=== PATIENT | male | born 1940 | race Caucasian/White ===

== ENCOUNTER 2022-03-16 12:41 | Inpatient (IN) | payer OTHER ==
[~2022-03-16] VITALS: Ht 170.2 cm; Wt 66.2 kg
[2022-03-16 21:28] LABS: BASOPHILS % 0.6 % (0.0-2.0); EOSINOPHILS % 1.1 % (0.0-5.0); HEMATOCRIT. 41.8 % (42.0-52.0); HEMOGLOBIN. 14.2 g/dL (14.0-18.0); LYMPHOCYTES % 16.6 % (20.0-50.0); MEAN CORPUSCULAR HEMOGLOBIN 31.7 pg (28.0-32.0); MEAN CORPUSCULAR VOLUME 93.3 fL (80.0-94.0); MEAN PLATELET VOLUME 8.7 fl (7.4-10.4); MONOCYTES % 10.2 % (2.0-8.0); NEUTROPHILS % 71.5 % (40.0-76.0); PLATELET 235 x1000/uL (130-400); RED BLOOD CELL COUNT 4.48 mill/uL (4.7-6.1); RED CELL DISTRIBUTION WIDTH 13.8 % (11.6-14.6)
[2022-03-16 21:29] LABS: CLARITY URINE CLEAR (CLEAR); COLOR URINE YELLOW (YELLOW); KETONES URINE NEGATIVE (NEGATIVE); LEUKOCYTE ESTERASE URINE NEGATIVE (NEGATIVE); NITRITE URINE NEGATIVE (NEGATIVE); OCCULT BLOOD URINE NEGATIVE (NEGATIVE); PROTEIN URINE NEGATIVE (NEGATIVE); UROBILINOGEN URINE 0.2 E.U./dL (0.2-1.0)
[2022-03-16 21:36] LABS: CHLORIDE 100 mEq/L (98-107)
[2022-03-17 15:15] VITALS: BP 127/72
[2022-03-17 16:00] VITALS: BP 131/72
[2022-03-17] MEDS ORDERED: METHYLPREDNISOLONE SOD SUCC 40 MG/ML VIAL IV SCH (17:00)
[2022-03-17] MEDS ORDERED: IPRATROPIUM/ALBUTEROL 0.5-3(2.5)MG/3ML NEB HHN PRN (17:00)
[2022-03-17] MEDS: METHYLPREDNISOLONE SOD SUCC 40 MG/ML VIAL IV SCH (18:43)
[2022-03-17 20:00] VITALS: BP 105/51
[2022-03-18] VITALS: BP 126/71
[2022-03-18 04:00] VITALS: BP 124/70
[2022-03-18 07:57] LABS: BASOPHILS % 0.1 % (0.0-2.0); CHLORIDE 101 mEq/L (98-107); HEMATOCRIT. 41.3 % (42.0-52.0); LYMPHOCYTES % 7.4 % (20.0-50.0); MEAN CORPUSCULAR HEMOGLOBIN 31.7 pg (28.0-32.0); MEAN CORPUSCULAR VOLUME 93.4 fL (80.0-94.0); MEAN PLATELET VOLUME 8.7 fl (7.4-10.4); MONOCYTES % 6.1 % (2.0-8.0); NEUTROPHILS % 86.4 % (40.0-76.0); PLATELET 245 x1000/uL (130-400); RED BLOOD CELL COUNT 4.42 mill/uL (4.7-6.1)
[2022-03-18 08:00] VITALS: BP 131/71
[2022-03-18] MEDS: ENOXAPARIN 40MG/0.4ML SYR SUBCUT SCH (08:17)
[2022-03-18] MEDS: METHYLPREDNISOLONE SOD SUCC 40 MG/ML VIAL IV SCH ×2 (08:20→18:06)
[2022-03-18] MEDS: ACETAMINOPHEN 325MG TABLET PO PRN (11:23)
[2022-03-18 12:00] VITALS: BP 94/49
[2022-03-18] MEDS ORDERED: TAMSULOSIN HCL 0.4MG SR CAPSULE PO SCH (12:30)
[2022-03-18] MEDS ORDERED: TAMSULOSIN HCL 0.4MG SR CAPSULE PO ONE (13:00)
[2022-03-18 16:00] VITALS: BP 111/66
[2022-03-18] MEDS: TAMSULOSIN HCL 0.4MG SR CAPSULE PO SCH (18:06)
[2022-03-18 20:00] VITALS: BP 117/66
[2022-03-19] VITALS: BP 128/74
[2022-03-19 04:00] VITALS: BP 122/69
[2022-03-19 08:00] VITALS: BP 129/74
[2022-03-19] MEDS: METHYLPREDNISOLONE SOD SUCC 40 MG/ML VIAL IV SCH ×2 (09:41→17:35)
[2022-03-19] MEDS: TAMSULOSIN HCL 0.4MG SR CAPSULE PO SCH (09:47)
[2022-03-19] MEDS: ENOXAPARIN 40MG/0.4ML SYR SUBCUT SCH (09:48)
[2022-03-19] MEDS ORDERED: CIPR-263 MT (10:25)
[2022-03-19] MEDS ORDERED: TAMS-11 MT (10:25)
[2022-03-19 12:00] VITALS: BP 128/76
[2022-03-19] MEDS: ACETAMINOPHEN 325MG TABLET PO PRN (13:22)
[2022-03-19 16:00] VITALS: BP 121/75
[2022-03-19] MEDS: POLYETHYLENE GLYCOL 3350 (17GM) 1 DOSE PACK PO SCH (17:00)
[2022-03-19 20:00] VITALS: BP 115/77
[2022-03-20 00:01] VITALS: BP 125/66
[2022-03-20 04:00] VITALS: BP 133/76
[2022-03-20] MEDS: POLYETHYLENE GLYCOL 3350 (17GM) 1 DOSE PACK PO SCH ×2 (09:00→09:04)
[2022-03-20] MEDS: METHYLPREDNISOLONE SOD SUCC 40 MG/ML VIAL IV SCH (09:04)
[2022-03-20] MEDS: ENOXAPARIN 40MG/0.4ML SYR SUBCUT SCH (09:05)
[2022-03-20] MEDS: TAMSULOSIN HCL 0.4MG SR CAPSULE PO SCH (09:07)
== END 2022-03-20 16:32 | DRG 726 ==
LOC: ER 12:41 → MICUSO 22:56 → EDBEDREQTM 23:21 → EDBEDREQ 23:21 → 6EST 03-17 14:54
PROVIDERS: ADMIT Internal Medicine; ATTEND Internal Medicine
DX: N40.1 Benign prostatic hyperplasia with lower urinary tract symptoms (principal); N13.8 Other obstructive and reflux uropathy; N39.0 Urinary tract infection, site not specified; R33.8 Other retention of urine; F03.90 Unspecified dementia, unspecified severity, without behavioral disturbance, psychotic disturbance, mood disturbance, and anxiety; R29.6 Repeated falls; Z87.891 Personal history of nicotine dependence; Z87.440 Personal history of urinary (tract) infections; W19.XXXA Unspecified fall, initial encounter; Y93.89 Activity, other specified; Y92.89 Other specified places as the place of occurrence of the external cause; Y99.8 Other external cause status
CPT/HCPCS: 36415; 80048; 80053; 81003; 85025; 97162; 97166; 97535; 99285; J1650; J2920